=== PATIENT | male | born 1990 | race Caucasian/White ===

== ENCOUNTER 2023-11-28 16:09 | Inpatient (IN) | payer OTHER ==
[~2023-11-28] VITALS: Ht 167.6 cm; Wt 70.5 kg
[2023-11-28] MEDS ORDERED: MESA250CR PO (16:21)
[2023-11-28] MEDS: SODIUM CHLORIDE 0.9% 1,000 ML IV ONE ×2 (16:57→16:58)
[2023-11-28] MEDS: ONDANSETRON HCL 4 MG/2 ML VIAL IVP ONE (16:58)
[2023-11-28] MEDS: HYDROmorphone HCL 2 MG/ML SYRINGE IVP ONE ×2 (16:58→21:39)
[2023-11-28 17:02] LABS: BASOPHILS % (AUTO) 0.6 % (0.0-2.0); EOSINOPHILS % (AUTO) 6.7 % (1.0-6.0); HEMATOCRIT 42.5 % (41-53); HEMOGLOBIN 14.2 g/dL (13.5-17.5); LYMPHOCYTES # (AUTO) 1.5 K/uL (1.0-4.8); LYMPHOCYTES % (AUTO) 19.4 % (22.0-44.0); MEAN CORPUSCULAR HGB CONC 33.4 G/dL (31.0-37.0); MEAN CORPUSCULAR VOLUME 90 fL (80-100); MONOCYTES # (AUTO) 0.9 K/uL (0.1-1.0); MONOCYTES % (AUTO) 12.2 % (2.0-9.0); NEUTROPHILS # (AUTO) 4.7 K/uL (1.8-7.7); NEUTROPHILS % (AUTO) 61.1 % (40.0-70.0); PLATELET COUNT (AUTO) 540 K/uL (150-450); RED BLOOD CELL COUNT(AUTO) 4.73 MIL/uL (4.50-5.90); RED CELL DISTRIBUTION WIDTH 12.5 % (11.5-14.5); WHITE BLOOD COUNT (AUTO) 7.6 K/uL (4.5-11.0)
[2023-11-28 17:19] LABS: ANION GAP 10 mmol/L (8-16); CALCIUM, TOTAL 8.8 mg/dL (8.8-10.5); CARBON DIOXIDE 29 mmol/L (22-29); CHLORIDE 100 mmol/L (98-107); CREATININE 0.89 mg/dL (0.60-1.30); GLOMERULAR FILTR. RATE CALC > 60 mL/min (>60); GLUCOSE,RANDOM 91 mg/dL (70-110); POTASSIUM 3.9 mmol/L (3.5-5.1); SODIUM SERUM 139 mmol/L (136-145); UREA NITROGEN, BLOOD 11 mg/dL (7-18)
[2023-11-28] MEDS: IOHEXOL 9 MG/ML 500 ML BOTTLE PO ONE (17:24)
[2023-11-28 17:34] LABS: ALANINE AMINOTRANSFERASE 17 U/L (12-78); ALBUMIN 3.2 g/dL (3.4-5.0); ALKALINE PHOSPHATASE 60 U/L (46-116); ASPARTATE AMINOTRANSFERASE 13 U/L (15-37); BILIRUBIN,TOTAL 0.2 mg/dL (0.1-1.0); LIPASE 29 U/L (16-77); TOTAL PROTEIN, SERUM 7.1 g/dL (6.4-8.2)
[2023-11-28 17:58] LABS: APPEARANCE,URINE HAZY (CLEAR); BILIRUBIN,URINE NEGATIVE (NEGATIVE); COLOR,URINE LIGHT YELLOW (YELLOW); GLUCOSE, URINE (UA) NEGATIVE (NEGATIVE); KETONES,URINE NEGATIVE (NEGATIVE); LEUKOCYTE ESTERASE ,URINE NEGATIVE (NEGATIVE); NITRATE,URINE NEGATIVE (NEGATIVE); OCCULT BLOOD,URINE NEGATIVE (NEGATIVE); PROTEIN,URINE TRACE mg/dL (NEGATIVE); SPECIFIC GRAVITIY, URINE 1.023 (1.003-1.030); UROBILINOGEN,URINE <=1.0 mg/dL (<=1.0)
[2023-11-28 18:05] LABS: ALCOHOL, URINE DRUG SCREEN NEGATIVE (NEGATIVE); AMPHET/METH SCREEN,URINE NEGATIVE (NEGATIVE); BARBITURATE SCREEN, URINE NEGATIVE (NEGATIVE); BENZODIAZEPINES SCREEN,URINE NEGATIVE (NEGATIVE); CANNABINOID SCREEN,URINE POSITIVE (NEGATIVE); COCAINE SCREEN,URINE NEGATIVE (NEGATIVE); METHADONE SCREEN, URINE NEGATIVE (NEGATIVE); OPIATE SCREEN,URINE NEGATIVE (NEGATIVE); PHENCYCLIDINE SCREEN,URINE NEGATIVE (NEGATIVE)
[2023-11-28] MEDS ORDERED: IOHEXOL 350 MG/ML 100 ML VIAL ONE (18:17)
[2023-11-28] MEDS ORDERED: SODIUM CHLORIDE 0.9% 100 ML ONE (18:17)
[2023-11-28 18:37] LABS: AMORPHOUS SEDIMENT,UR Moderate /LPF (None Seen); BACTERIA,URINE None Seen /HPF (None Seen); RBC,URINE None Seen /HPF (0-2); SQUAMOUS EPITHELIAL CELL,UR None Seen /LPF (None Seen); WBC,URINE None Seen /HPF (0-5)
[2023-11-28] MEDS: PredniSONE 20 MG TABLET PO ONE (20:58)
[2023-11-28] MEDS: PIPERACILLIN/TAZO 3.375 GM/D5W 50 ML IV SCH (23:14)
[2023-11-28] MEDS: RINGERS SOLUTION,LACTATED 1,000 ML IV SCH (23:15)
[2023-11-29 01:45] VITALS: BP 107/58; PULSE 67; RESP 18; TEMP 97.8; O2SAT 96
[2023-11-29] MEDS: MethylPREDNISolone SOD SUCC 125 MG/2 ML VIAL IVP SCH (02:04)
[2023-11-29 07:49] LABS: BASOPHILS % (AUTO) 0.1 % (0.0-2.0); EOSINOPHILS % (AUTO) 0 % (1.0-6.0); HEMATOCRIT 40.1 % (41-53); HEMOGLOBIN 13.5 g/dL (13.5-17.5); LYMPHOCYTES # (AUTO) 0.7 K/uL (1.0-4.8); LYMPHOCYTES % (AUTO) 8.6 % (22.0-44.0); MEAN CORPUSCULAR HEMOGLOBIN 30.2 pg (26.0-34.0); MEAN CORPUSCULAR HGB CONC 33.8 G/dL (31.0-37.0); MEAN CORPUSCULAR VOLUME 89 fL (80-100); MONOCYTES # (AUTO) 0.1 K/uL (0.1-1.0); MONOCYTES % (AUTO) 0.9 % (2.0-9.0); NEUTROPHILS # (AUTO) 7.7 K/uL (1.8-7.7); PLATELET COUNT (AUTO) 528 K/uL (150-450); RED BLOOD CELL COUNT(AUTO) 4.49 MIL/uL (4.50-5.90); RED CELL DISTRIBUTION WIDTH 12.7 % (11.5-14.5); WHITE BLOOD COUNT (AUTO) 8.5 K/uL (4.5-11.0)
[2023-11-29 07:58] LABS: ANION GAP 9 mmol/L (8-16); CALCIUM, TOTAL 9.2 mg/dL (8.8-10.5); CARBON DIOXIDE 28 mmol/L (22-29); CHLORIDE 99 mmol/L (98-107); GLOMERULAR FILTR. RATE CALC > 60 mL/min (>60); GLUCOSE,RANDOM 140 mg/dL (70-110); POTASSIUM 4.7 mmol/L (3.5-5.1); SODIUM SERUM 136 mmol/L (136-145); UREA NITROGEN, BLOOD 6 mg/dL (7-18)
[2023-11-29 08:04] LABS: NEUTROPHILS % (AUTO) 90.4 % (40.0-70.0)
[2023-11-29 08:07] VITALS: BP 106/55; PULSE 62; RESP 19; TEMP 97.8; O2SAT 98
[2023-11-29] MEDS: DOCUSATE SODIUM 100 MG CAPSULE PO SCH (08:44)
[2023-11-29] MEDS: MORPHINE SULFATE 2 MG/ML SYRINGE IVP PRN (10:38)
[2023-11-29] MEDS ORDERED: MIDAZOLAM HCL 2 MG/2 ML VIAL IVP ONE (12:00)
[2023-11-29] MEDS ORDERED: FentaNYL CITRATE PF 100 MCG/2 ML VIAL IVP ONE (12:00)
[2023-11-29] MEDS: PEG 3350/NA SULF,BICARB,CL/KCL 4000 ML SOLUTION PO ONE (17:16)
[2023-11-29 17:22] VITALS: BP 130/96; PULSE 91; RESP 19; TEMP 98.4; O2SAT 96
[2023-11-29 19:39] VITALS: BP 122/82; PULSE 86; RESP 14; TEMP 98; O2SAT 99
[2023-11-29] MEDS: MethylPREDNISolone SOD SUCC 40 MG/ML VIAL IVP SCH (20:31)
[2023-11-30 05:50] VITALS: BP 100/57; PULSE 70; RESP 18; TEMP 97.9; O2SAT 99
[2023-11-30] MEDS ORDERED: SODIUM CHLORIDE 0.9% 1,000 ML ONE (10:39)
[2023-11-30] MEDS ORDERED: PROPOFOL 1% ISO-OSM 1000 MG/100 ML BOTTLE IV ONE (12:00)
[2023-11-30] MEDS ORDERED: LIDOCAINE/PF 2% 5 ML SYRINGE IVP ONE (12:00)
[2023-11-30] MEDS ORDERED: GLYCOPYRROLATE 0.2 MG/ML VIAL IM ONE (12:00)
[2023-11-30] MEDS ORDERED: ONDANSETRON HCL 4 MG/2 ML VIAL IVP ONE (12:00)
[2023-11-30 15:59] VITALS: BP 112/78; PULSE 74; RESP 18; TEMP 98.5; O2SAT 98
[2023-11-30 16:24] LABS: OCCULT BLOOD STOOL SINGLE ONLY POSITIVE (NEGATIVE)
[2023-11-30 16:45] LABS: C.DIFF GDH ANTIGEN, Stool Negative (Negative); C.DIFF TOXINS A&B, Stool Negative (Negative)
[2023-11-30 20:17] VITALS: BP 113/65; PULSE 81; RESP 18; TEMP 98.1; O2SAT 95
[2023-11-30] MEDS: MESALAMINE 250 MG PO SCH (20:44)
[2023-12-01 04:21] VITALS: BP 104/56; PULSE 54; RESP 18; TEMP 97.6; O2SAT 96
[2023-12-01 08:09] LABS: EOSINOPHILS % (AUTO) 0.1 % (1.0-6.0); HEMATOCRIT 38.2 % (41-53); LYMPHOCYTES % (AUTO) 14.7 % (22.0-44.0); MEAN CORPUSCULAR HEMOGLOBIN 30.6 pg (26.0-34.0); MEAN CORPUSCULAR HGB CONC 34.1 G/dL (31.0-37.0); MEAN CORPUSCULAR VOLUME 90 fL (80-100); MONOCYTES # (AUTO) 0.9 K/uL (0.1-1.0); MONOCYTES % (AUTO) 12.7 % (2.0-9.0); NEUTROPHILS % (AUTO) 72.5 % (40.0-70.0); PLATELET COUNT (AUTO) 504 K/uL (150-450); RED BLOOD CELL COUNT(AUTO) 4.26 MIL/uL (4.50-5.90); RED CELL DISTRIBUTION WIDTH 12.6 % (11.5-14.5); WHITE BLOOD COUNT (AUTO) 6.9 K/uL (4.5-11.0)
[2023-12-01 08:15] LABS: ANION GAP 7 mmol/L (8-16); CALCIUM, TOTAL 8.5 mg/dL (8.8-10.5); CARBON DIOXIDE 28 mmol/L (22-29); CHLORIDE 104 mmol/L (98-107); CREATININE 0.83 mg/dL (0.60-1.30); GLOMERULAR FILTR. RATE CALC > 60 mL/min (>60); GLUCOSE,RANDOM 96 mg/dL (70-110); POTASSIUM 3.9 mmol/L (3.5-5.1); SODIUM SERUM 139 mmol/L (136-145); UREA NITROGEN, BLOOD 10 mg/dL (7-18)
[2023-12-01 08:18] VITALS: BP 132/92; PULSE 64; RESP 19; TEMP 97.6; O2SAT 97
[2023-12-01] MEDS: ONDANSETRON HCL 4 MG/2 ML VIAL IVP PRN (09:46)
[2023-12-01] MEDS ORDERED: MESA250CR PO (15:53)
[2023-12-01] MEDS ORDERED: PRED-554 PO (15:53)
[2023-12-01] MEDS ORDERED: PRED-729 PO (15:53)
[2023-12-01] MEDS ORDERED: ONDA-104 PO (16:04)
[2023-12-01] MEDS ORDERED: MESA400C2 PO (16:04)
== END 2023-12-01 17:17 | disposition home or self-care (01) | DRG 245 ==
LOC: EMS 16:13 → EDH 22:43 → 4E 11-29 01:27
PROVIDERS: ADMIT Internal Medicine; ATTEND Internal Medicine
PROC: 0DBP8ZX Excision of Rectum, Via Natural or Artificial Opening Endoscopic, Diagnostic (ICD-10-PCS; 2023-11-30)
PROC: 0DBL8ZX Excision of Transverse Colon, Via Natural or Artificial Opening Endoscopic, Diagnostic (ICD-10-PCS; 2023-11-30)
PROC: 0DBE8ZX Excision of Large Intestine, Via Natural or Artificial Opening Endoscopic, Diagnostic (ICD-10-PCS; principal; 2023-11-30 09:00)
DX: K51.911 Ulcerative colitis, unspecified with rectal bleeding (principal); D84.9 Immunodeficiency, unspecified; E44.0 Moderate protein-calorie malnutrition; A09 Infectious gastroenteritis and colitis, unspecified; D75.839 Thrombocytosis, unspecified; Z87.891 Personal history of nicotine dependence; Z68.25 Body mass index [BMI] 25.0-25.9, adult
CPT/HCPCS: 74177; 80048; 80076; 80307; 81001; 82271; 83605; 83690; 83735; 85025; 85651; 86140; 87081; 87324; 87449; 88305; 89055; 99285; G0378; J1170; J2250; J2270; J2405; J2543; J2704; J2919; J3010; J3490; J7030; J7050; J7120

== ENCOUNTER 2024-03-26 17:54 | Inpatient (IN) | payer OTHER ==
[~2024-03-26] VITALS: Ht 167.6 cm; Wt 81.0 kg
[~2024-03-26 17:54] MED LIST: MESA400C2 PO; ONDA-104 PO; PRED-554 PO; PRED-729 PO
[2024-03-26 18:59] LABS: BASOPHILS % (AUTO) 0.8 % (0.0-2.0); EOSINOPHILS % (AUTO) 6.1 % (1.0-6.0); HEMATOCRIT 45.2 % (41-53); HEMOGLOBIN 15.8 g/dL (13.5-17.5); LYMPHOCYTES # (AUTO) 1.3 K/uL (1.0-4.8); LYMPHOCYTES % (AUTO) 28.1 % (22.0-44.0); MEAN CORPUSCULAR HEMOGLOBIN 30.6 pg (26.0-34.0); MEAN CORPUSCULAR VOLUME 88 fL (80-100); MONOCYTES # (AUTO) 0.7 K/uL (0.1-1.0); MONOCYTES % (AUTO) 13.8 % (2.0-9.0); NEUTROPHILS # (AUTO) 2.4 K/uL (1.8-7.7); NEUTROPHILS % (AUTO) 51.2 % (40.0-70.0); PLATELET COUNT (AUTO) 327 K/uL (150-450); RED BLOOD CELL COUNT(AUTO) 5.16 MIL/uL (4.50-5.90); RED CELL DISTRIBUTION WIDTH 12.8 % (11.5-14.5); WHITE BLOOD COUNT (AUTO) 4.8 K/uL (4.5-11.0)
[2024-03-26 19:05] LABS: ANION GAP 4 mmol/L (8-16); CARBON DIOXIDE 32 mmol/L (22-29); CHLORIDE 102 mmol/L (98-107); CREATININE 1.09 mg/dL (0.60-1.30); GLOMERULAR FILTR. RATE CALC > 60 mL/min (>60); GLUCOSE,RANDOM 92 mg/dL (70-110); POTASSIUM 3.9 mmol/L (3.5-5.1); SODIUM SERUM 138 mmol/L (136-145); UREA NITROGEN, BLOOD 14 mg/dL (7-18)
[2024-03-26 19:11] LABS: ALANINE AMINOTRANSFERASE 19 U/L (12-78); ALBUMIN 3.8 g/dL (3.4-5.0); ALKALINE PHOSPHATASE 67 U/L (46-116); ASPARTATE AMINOTRANSFERASE 15 U/L (15-37); BILIRUBIN,TOTAL 0.5 mg/dL (0.1-1.0); TOTAL PROTEIN, SERUM 7.1 g/dL (6.4-8.2)
[2024-03-26] MEDS ORDERED: ACETAMINOPHEN 325 MG TABLET PO PRN (21:30)
[2024-03-26] MEDS ORDERED: MAGNESIUM HYDROXIDE SUSPENSION 30 ML UDCUP PO PRN (21:30)
[2024-03-26] MEDS ORDERED: ONDANSETRON HCL 4 MG/2 ML VIAL IVP PRN (21:30)
[2024-03-26] MEDS ORDERED: MORPHINE SULFATE 2 MG/ML SYRINGE IVP PRN (21:30)
[2024-03-26] MEDS: PANTOPRAZOLE SODIUM 40 MG/VIAL IVP SCH (22:03)
[2024-03-26] MEDS: ZOLPIDEM TARTRATE 5 MG TABLET PO PRN (23:16)
[2024-03-26] MEDS: MethylPREDNISolone SOD SUCC 125 MG/2 ML VIAL IVP SCH (23:17)
[2024-03-26 23:32] VITALS: BP 113/59; PULSE 69; RESP 18; TEMP 98.3; O2SAT 94
[2024-03-27] MEDS ORDERED: INFLUENZA VIRUS VACCINE TVS (6MO+) 2024-25/PF 45 MCG/0.5 ML SYRINGE IM. ONE (02:00)
[2024-03-27 04:00] VITALS: BP 98/62; PULSE 51; RESP 20; TEMP 97.9; O2SAT 96
[2024-03-27 07:40] LABS: BASOPHILS % (AUTO) 0.6 % (0.0-2.0); EOSINOPHILS % (AUTO) 0.2 % (1.0-6.0); HEMATOCRIT 47.2 % (41-53); HEMOGLOBIN 16.6 g/dL (13.5-17.5); LYMPHOCYTES # (AUTO) 0.7 K/uL (1.0-4.8); LYMPHOCYTES % (AUTO) 12.8 % (22.0-44.0); MEAN CORPUSCULAR HEMOGLOBIN 30.2 pg (26.0-34.0); MEAN CORPUSCULAR HGB CONC 35.1 G/dL (31.0-37.0); MEAN CORPUSCULAR VOLUME 86 fL (80-100); MONOCYTES # (AUTO) 0.1 K/uL (0.1-1.0); MONOCYTES % (AUTO) 1.8 % (2.0-9.0); NEUTROPHILS # (AUTO) 4.9 K/uL (1.8-7.7); NEUTROPHILS % (AUTO) 84.6 % (40.0-70.0); PLATELET COUNT (AUTO) 329 K/uL (150-450); RED BLOOD CELL COUNT(AUTO) 5.49 MIL/uL (4.50-5.90); RED CELL DISTRIBUTION WIDTH 12.6 % (11.5-14.5); WHITE BLOOD COUNT (AUTO) 5.8 K/uL (4.5-11.0)
[2024-03-27 08:16] VITALS: BP 105/62; PULSE 57; RESP 18; TEMP 97.9; O2SAT 98
[2024-03-27] MEDS: MESALAMINE 1000 MG PR SCH (10:52)
[2024-03-27 20:40] VITALS: BP 119/75; PULSE 68; RESP 18; TEMP 98.2; O2SAT 98
[2024-03-28 04:46] VITALS: BP 98/57; PULSE 60; RESP 19; TEMP 97.6; O2SAT 97
[2024-03-28 08:49] VITALS: BP 114/62; PULSE 62; RESP 18; TEMP 98; O2SAT 99
[2024-03-29] MEDS ORDERED: PredniSONE 20 MG TABLET PO SCH (09:00)
== END 2024-03-28 17:45 | DRG 386 ==
LOC: EMS 17:54 → EDH 21:19 → 6S 23:03
PROVIDERS: ADMIT Internal Medicine; ATTEND Internal Medicine
DX: K51.90 Ulcerative colitis, unspecified, without complications (principal); K62.5 Hemorrhage of anus and rectum; Z87.891 Personal history of nicotine dependence; Z79.899 Other long term (current) drug therapy
CPT/HCPCS: 80048; 80076; 85025; 99285; J2470; J2919

== ENCOUNTER 2024-05-17 15:43 | Inpatient (IN) | payer OTHER ==
[~2024-05-17] VITALS: Ht 167.6 cm; Wt 68.2 kg
[2024-05-17] MEDS ORDERED: BUPR-49 PO (16:59)
[2024-05-17] MEDS: MESALAMINE 400 MG DR CAPSULE PO ONE (17:11)
[2024-05-17 17:14] LABS: BASOPHILS % (AUTO) 0.6 % (0.0-2.0); EOSINOPHILS % (AUTO) 1.3 % (1.0-6.0); HEMATOCRIT 39.9 % (41-53); HEMOGLOBIN 13.4 g/dL (13.5-17.5); LYMPHOCYTES # (AUTO) 0.9 K/uL (1.0-4.8); LYMPHOCYTES % (AUTO) 13.1 % (22.0-44.0); MEAN CORPUSCULAR HEMOGLOBIN 29.8 pg (26.0-34.0); MEAN CORPUSCULAR HGB CONC 33.5 G/dL (31.0-37.0); MEAN CORPUSCULAR VOLUME 89 fL (80-100); MONOCYTES # (AUTO) 0.9 K/uL (0.1-1.0); MONOCYTES % (AUTO) 13.5 % (2.0-9.0); NEUTROPHILS # (AUTO) 4.7 K/uL (1.8-7.7); NEUTROPHILS % (AUTO) 71.5 % (40.0-70.0); PLATELET COUNT (AUTO) 380 K/uL (150-450); RED BLOOD CELL COUNT(AUTO) 4.49 MIL/uL (4.50-5.90); RED CELL DISTRIBUTION WIDTH 13.1 % (11.5-14.5); WHITE BLOOD COUNT (AUTO) 6.6 K/uL (4.5-11.0)
[2024-05-17] MEDS: SODIUM CHLORIDE 0.9% 1,000 ML IV ONE ×2 (17:21→17:27)
[2024-05-17 17:23] LABS: ANION GAP 8 mmol/L (8-16); CARBON DIOXIDE 31 mmol/L (22-29); CHLORIDE 101 mmol/L (98-107); GLOMERULAR FILTR. RATE CALC > 60 mL/min (>60); GLUCOSE,RANDOM 83 mg/dL (70-110); LIPASE 31 U/L (16-77); POTASSIUM 3.6 mmol/L (3.5-5.1); SODIUM SERUM 140 mmol/L (136-145); UREA NITROGEN, BLOOD 11 mg/dL (7-18)
[2024-05-17] MEDS: MethylPREDNISolone SOD SUCC 125 MG/2 ML VIAL IVP ONE (17:26)
[2024-05-17] MEDS: ONDANSETRON HCL 4 MG/2 ML VIAL IVP ONE (17:26)
[2024-05-17] MEDS: MORPHINE SULFATE 4 MG/ML SYRINGE IVP ONE (17:26)
[2024-05-17 17:32] LABS: LACTIC ACID 1.1 mmol/L (0.4-2.0)
[2024-05-17 18:34] LABS: C-REACTIVE PROTEIN QUANT 5.67 mg/dL (0.00-0.30)
[2024-05-17] MEDS: KETOROLAC TROMETHAMINE 30 MG/ML VIAL IVP ONE (19:58)
[2024-05-17] MEDS: DEXTROSE 5%-LACTATED RINGERS 1,000 ML IV SCH (19:58)
[2024-05-17] MEDS: BUDESONIDE 3 MG CAPSULE PO ONE (19:59)
[2024-05-17] MEDS: PIPERACILLIN/TAZO 3.375 GM/D5W 50 ML IV SCH (23:27)
[2024-05-17] MEDS ORDERED: SODIUM CHLORIDE 0.9% 250 ML IV ONE (23:52)
[2024-05-17] MEDS: ACETAMINOPHEN 325 MG TABLET PO PRN (23:57)
[2024-05-18 00:11] VITALS: BP 101/61; PULSE 57; RESP 18; TEMP 98.2; O2SAT 98
[2024-05-18] MEDS ORDERED: KETOROLAC TROMETHAMINE 15 MG/ML VIAL IVP SCH (00:15)
[2024-05-18 00:18] LABS: APPEARANCE,URINE CLEAR (CLEAR); BILIRUBIN,URINE NEGATIVE (NEGATIVE); COLOR,URINE LIGHT YELLOW (YELLOW); GLUCOSE, URINE (UA) NEGATIVE (NEGATIVE); KETONES,URINE NEGATIVE (NEGATIVE); LEUKOCYTE ESTERASE ,URINE NEGATIVE (NEGATIVE); NITRATE,URINE NEGATIVE (NEGATIVE); OCCULT BLOOD,URINE NEGATIVE (NEGATIVE); PROTEIN,URINE NEGATIVE (NEGATIVE); SPECIFIC GRAVITIY, URINE 1.012 (1.003-1.030); UROBILINOGEN,URINE <=1.0 mg/dL (<=1.0)
[2024-05-18 00:23] LABS: BACTERIA,URINE Few /HPF (None Seen); RBC,URINE 0-2 /HPF (0-2); WBC,URINE 0-2 /HPF (0-5)
[2024-05-18] MEDS: MELATONIN 3 MG TABLET PO PRN (00:25)
[2024-05-18] MEDS ORDERED: KETOROLAC TROMETHAMINE 15 MG/ML VIAL IVP PRN (00:30)
[2024-05-18] MEDS: ONDANSETRON HCL 4 MG/2 ML VIAL IVP PRN (00:33)
[2024-05-18] MEDS ORDERED: INFLUENZA VIRUS VACCINE TVS (6MO+) 2024-25/PF 45 MCG/0.5 ML SYRINGE IM. ONE (00:45)
[2024-05-18 05:04] VITALS: BP 127/61; PULSE 55; RESP 18; TEMP 97.7; O2SAT 98
[2024-05-18 07:13] LABS: BASOPHILS % (AUTO) 0.1 % (0.0-2.0); EOSINOPHILS % (AUTO) 0 % (1.0-6.0); HEMATOCRIT 37.4 % (41-53); HEMOGLOBIN 12.8 g/dL (13.5-17.5); LYMPHOCYTES # (AUTO) 0.5 K/uL (1.0-4.8); LYMPHOCYTES % (AUTO) 7.9 % (22.0-44.0); MEAN CORPUSCULAR HEMOGLOBIN 29.9 pg (26.0-34.0); MEAN CORPUSCULAR HGB CONC 34.2 G/dL (31.0-37.0); MEAN CORPUSCULAR VOLUME 87 fL (80-100); MONOCYTES # (AUTO) 0.3 K/uL (0.1-1.0); MONOCYTES % (AUTO) 4.5 % (2.0-9.0); NEUTROPHILS # (AUTO) 5.8 K/uL (1.8-7.7); PLATELET COUNT (AUTO) 370 K/uL (150-450); RED BLOOD CELL COUNT(AUTO) 4.28 MIL/uL (4.50-5.90); RED CELL DISTRIBUTION WIDTH 12.9 % (11.5-14.5); WHITE BLOOD COUNT (AUTO) 6.6 K/uL (4.5-11.0)
[2024-05-18 07:25] LABS: NEUTROPHILS % (AUTO) 87.5 % (40.0-70.0)
[2024-05-18 07:31] VITALS: BP 110/58; PULSE 57; RESP 18; TEMP 97.9; O2SAT 100
[2024-05-18 07:31] LABS: ANION GAP 8 mmol/L (8-16); CALCIUM, TOTAL 8.8 mg/dL (8.8-10.5); CARBON DIOXIDE 28 mmol/L (22-29); CHLORIDE 103 mmol/L (98-107); CREATININE 0.84 mg/dL (0.60-1.30); GLOMERULAR FILTR. RATE CALC > 60 mL/min (>60); GLUCOSE,RANDOM 137 mg/dL (70-110); POTASSIUM 4.1 mmol/L (3.5-5.1); SODIUM SERUM 139 mmol/L (136-145); UREA NITROGEN, BLOOD 13 mg/dL (7-18)
[2024-05-18] MEDS: FAMOTIDINE 20 MG TABLET PO SCH (12:20)
[2024-05-18] MEDS: MESALAMINE 400 MG DR CAPSULE PO SCH (15:24)
[2024-05-18] MEDS: ONDANSETRON 4 MG TABLET PO PRN (19:25)
[2024-05-18 19:57] VITALS: BP 134/76; PULSE 67; RESP 16; TEMP 98.4; O2SAT 98
[2024-05-19] MEDS ORDERED: HEPARIN SODIUM,PORCINE 5,000 UNITS/ML VIAL SQ SCH
[2024-05-19 04:07] LABS: HEPATITIS C AB (EIA) Non Reactive (Non Reactive)
[2024-05-19 04:44] VITALS: BP 118/61; PULSE 57; RESP 18; TEMP 98.5; O2SAT 97
[2024-05-19 08:55] VITALS: BP 114/77; RESP 18; TEMP 98.2; O2SAT 95
[2024-05-19] MEDS ORDERED: TraMADol HCL 50 MG TABLET PO PRN (11:00)
[2024-05-19 11:43] LABS: HEMATOCRIT 39.5 % (41-53); HEMOGLOBIN 13.5 g/dL (13.5-17.5)
[2024-05-19] MEDS: TraMADol HCL 50 MG TABLET PO PRN (13:13)
[2024-05-19 19:46] VITALS: BP 129/71; PULSE 56; RESP 18; TEMP 98.5; O2SAT 96
[2024-05-20 05:01] VITALS: BP 117/71; PULSE 51; RESP 18; TEMP 98.6; O2SAT 96
[2024-05-20 08:03] VITALS: BP 120/78; PULSE 81; RESP 17; TEMP 97.6; O2SAT 98
[2024-05-20 08:29] VITALS: BP 120/68; PULSE 56; RESP 18; TEMP 98.6; O2SAT 97
[2024-05-20 20:18] VITALS: BP 118/74; PULSE 58; RESP 18; TEMP 98.4; O2SAT 98
[2024-05-21 04:58] VITALS: BP 98/62; PULSE 64; RESP 18; TEMP 98; O2SAT 97
[2024-05-21 08:00] VITALS: BP 107/63; PULSE 61; RESP 19; TEMP 98; O2SAT 99
[2024-05-21 19:26] VITALS: BP 101/58; PULSE 61; RESP 18; TEMP 98.4; O2SAT 96
[2024-05-22 04:04] VITALS: BP 125/75; PULSE 56; RESP 18; TEMP 98.1; O2SAT 97
[2024-05-22 07:40] VITALS: BP 111/61; PULSE 60; RESP 18; TEMP 98.1; O2SAT 98
[2024-05-22] MEDS ORDERED: MESA1.2T3 PO (08:58)
[2024-05-22] MEDS ORDERED: ONDANSETRON 4 MG TABLET PO PRN (09:15)
[2024-05-22] MEDS ORDERED: MELA3TAB89 PO (09:26)
[2024-05-22] MEDS: MESALAMINE 400 MG DR CAPSULE PO SCH (16:13)
[2024-05-22 16:19] VITALS: BP 112/77; PULSE 73; RESP 20; TEMP 98.7; O2SAT 97
[2024-05-23] MEDS ORDERED: BuPROPion HCL XL 150 MG ER TABLET PO SCH (09:00)
== END 2024-05-22 18:48 | DRG 386 ==
LOC: EMS 15:43 → EDH 20:06 → 6S 23:39
PROVIDERS: ADMIT Internal Medicine; ATTEND Internal Medicine
DX: K51.911 Ulcerative colitis, unspecified with rectal bleeding (principal); E87.3 Alkalosis; Z87.891 Personal history of nicotine dependence
CPT/HCPCS: 80048; 81001; 82271; 83605; 83690; 83735; 85014; 85018; 85025; 86140; 86803; 87040; 87340; 99285; J1885; J2270; J2405; J2543; J2919; J7050; Q0162